=== PATIENT | male | born 1945 | race Caucasian/White ===

== ENCOUNTER → 2018-01-12 | Day surgery (SDC) | payer OTHER, MEDICARE ==
[~2018-01-12] MED LIST: ASA81 MG PO; CRESTOR10 MG PO; DEXAMETHASONE SOD PHOS INJ 4 MG/ML VIAL ONE; DIOVAN PO; EPHEDRINE SULFATE INJ 50 MG/10 ML SYR ONE; FENTANYL CITRATE/PF 100MCG/2 ML INJ ONE; GENTAMICIN 120MG/NS 100ML 100 ML ONE; IOPAMIDOL 610MG/1ML 300 MG/ML VIAL IV ONE; LEVSIN0.125 M1 GT; LIDOCAINE HCL 2% LOCAL INJ 5 ML SDV VIAL INJ ONE; LORATADINE10 M2 PO; MIDAZOLAM HCL 2 MG/2 ML VIAL ONE; ONDANSETRON HCL INJ 2 MG/ML VIAL ONE; PROPOFOL IV EMULSION 10 MG/ML 20 ML VIAL ONE; SEVOFLURANE INHAL SOLN 250 ML PEN BTL ONE; Z.0.BENICAR20 MG PO; Z.0.OMEPRAZOLE40 MG PO
--- OUTSIDE RECORDS SUMMARY | 2018-01-12 08:37 | XMS REPORT | Clinical Summary ---
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 Name Role Phone Izzy Martino MD PCP Allergies Not on File Current Medications Not on file Active Problems Not on file Encounters Date Type Specialty Care Team Description 12/07/2017 [facility] Radiology Abdneeru, Junior Aziz, BPH with urinary Encounter MD obstruction 11/25/2017 Transcribe Access Abdelsayed, Junior Aziz, BPH with urinary Orders MD obstruction (Primary Dx) 10/27/2017 Hospital Radiology Abdelsalissa, Junior Aziz, Urethral cyst; Encounter MD Hydronephrosis, unspecified hydronephrosis type 10/25/2017 Transcribe Access Abdelsayed, Junior Aziz, Urethral cyst ( Primary Orders MD Dx); Hydronephrosis, unspecified hydronephrosis type after 01/11/2017 Social History Tobacco Use Types Packs/Day Years Used Date Never Assessed Sex Assigned at Date Recorded Not on file Last Filed Vital Signs Not on file Plan of Treatment Health Maintenance Due Date Last Done Comments COLONOSCOPY 1996 SHINGRIX VACCINE (#1) 1996 ZOSTER VACCINE 2006 PNEUMOCOCCAL 2011 POLYSACCHARIDE VACCINE AGE 65 AND OVER PNEUMOCOCCAL-13 2011 INFLUENZA VACCINE 04/06/2018 Results * US Prostate (12/07/2017 2:30 PM) Specimen Performing Laboratory [facility] [address] [place] [address] Narrative PROCEDURE:US PROSTATE CLINICAL HISTORY:N40.1 Benign prostatic hyperplasia with lower urinary tract symptoms, N13.8 Other obstructive and reflux uropathy, BPH COMPARISON:None. TECHNIQUE: A transrectal examination of the prostate gland was performed in transverse and sagittal views with color-flow Doppler interrogation. The seminal vesicles were also interrogated. FINDINGS: The prostate gland measures 4.9 cm x 5.2 cm x 3.1 cm for a volume of 40.5 mL. The peripheral zone is homogeneous. No focal lesions are identified. Heterogeneity in echotexture is demonstrated of the central zone with calcification of the prostate at the junction of the central and peripheral zone. A small cystic area measuring 4.4 mm in maximal diameter is seen in the lower right central zone. No abnormality of the seminal vesicles is seen. IMPRESSION: Abnormal study. Benign prostatic hyperplasia. Prostatic calcifications. No focal lesions are identified in the peripheral zone. Tiny cyst in the central zone. No abnormality of the seminal vesicles is seen. [facility] [id number] . Procedure Note Interface, Radiology Results Incoming - 12/07/2017 6:14 PM CDT PROCEDURE: US PROSTATE CLINICAL HISTORY: N40.1 Benign prostatic hyperplasia with lower urinary tract symptoms, N13.8 Other obstructive and reflux uropathy, BPH COMPARISON: None. TECHNIQUE: A transrectal examination of the prostate gland was performed in transverse and sagittal views with color-flow Doppler interrogation. The seminal vesicles were also interrogated. FINDINGS: The prostate gland measures 4.9 cm x 5.2 cm x 3.1 cm for a volume of 40.5 mL. The peripheral zone is homogeneous. No focal lesions are identified. Heterogeneity in echotexture is demonstrated of the central zone with calcification of the prostate at the junction of the central and peripheral zone. A small cystic area measuring 4.4 mm in maximal diameter is seen in the lower right central zone. No abnormality of the seminal vesicles is seen. IMPRESSION: Abnormal study. Benign prostatic hyperplasia. Prostatic calcifications. No focal lesions are identified in the peripheral zone. Tiny cyst in the central zone. No abnormality of the seminal vesicles is seen. [facility] [id number] . * US Renal (10/27/2017 4:02 PM) Specimen Performing Laboratory [facility] [address] [place] [address] Narrative EXAMINATION:US RENAL CLINICAL HISTORY:N36.8 Other specified disorders of urethra, N13.30 Unspecified hydronephrosis, HYDRONEPHROSIS COMPARISON:April 08, 2016 renal ultrasound FINDINGS: The kidneys are normal in size. Kidneys slightly increased in echogenicity. Left kidney borderline atrophic separate previous. There is no evidence of renal mass on either side. Moderate fullness renal pelvis on the left as before. The right kidney .61 cmX5.93 cmX6.37 cm. Renal cortex 1.78 mm. 4 mm echogenic focus inferior pole right kidney. Nonshadowing renal calculus suspected The left kidney measures9.28 cmX6.59 cm X 4.46 cm. Renal cortex 1.04 cm. 4.1 cm area benign appearing cortical cyst. The urinary bladder measures 775 cc prevoid and 180 cc postvoid. IMPRESSION: Increased echogenicity kidneys similar to previous in keeping with renal dysfunction. Stable borderline atrophic left kidney. Stable moderate renal pelvic fullness on the left. Renal cortical cyst on the right benign in appearance Small 4 mm nonshadowing calculus inferior pole right kidney. Moderate post void residual urinary bladder at 180 cc. [id number] Procedure Note Hm Interface, Radiology Results Incoming - 10/27/2017 5:06 PM INVENTORY COORDINATOR EXAMINATION: US RENAL CLINICAL HISTORY: N36.8 Other specified disorders of urethra, N13.30 Unspecified hydronephrosis, HYDRONEPHROSIS COMPARISON: April 08, 2016 renal ultrasound FINDINGS: The kidneys are normal in size. Kidneys slightly increased in echogenicity. Left kidney borderline atrophic separate previous. There is no evidence of renal mass on either side. Moderate fullness renal pelvis on the left as before. The right kidney measures 11.61 cm X 5.93 cm X 6.37 cm. Renal cortex 1.78 mm. 4 mm echogenic focus inferior pole right kidney. Nonshadowing renal calculus suspected The left kidney measures 9.28 cm X 6.59 cm X 4.46 cm. Renal cortex 1.04 cm. 4.1 cm area benign appearing cortical cyst. The urinary bladder measures 775 cc prevoid and 180 cc postvoid. IMPRESSION: Increased echogenicity kidneys similar to previous in keeping with renal dysfunction. Stable borderline atrophic left kidney. Stable moderate renal pelvic fullness on the left. Renal cortical cyst on the right benign in appearance Small 4 mm nonshadowing calculus inferior pole right kidney. Moderate post void residual urinary bladder at 180 cc. [id number] after 01/11/2017 Insurance Payer Benefit Subscriber ID Type Phone Address Plan / Group AETNA AETNA xxxxxxxxxx HMO HMO,POS,EP O, [facility] MEDICARE MEDICARE xxxxxxxxxx Medicare [place], [place] PART A AND B AETNA AETNA xxxxxxxxxx HMO HMO,POS,EP O, [place] [address]
--- NOTE | 2018-01-12 09:44 | Diagnostic Imaging Report ---
PROCEDURE: Frontal and lateral views of the chest. COMPARISON: None. INDICATIONS: PRE OPERATIVE CHEST X-RAY FOR UROLOGY SURGERY FINDINGS: Lines/tubes: None. Lungs: The lungs are well inflated and clear. There is no evidence of pneumonia or pulmonary edema. Pleura: There is no pleural effusion or pneumothorax. Heart and mediastinum: The heart and the mediastinum are normal. Bones: No acute bony abnormality. Degenerative changes of the thoracic spine. IMPRESSION: No acute radiographic abnormality. Dictated by: Lester Smiley M.D. on 01/12/2018 at 9:46 Electronically approved by: Lester Smiley M.D. on 01/12/2018 at 9:46
--- NOTE | 2018-01-12 11:44 | Operative Report ---
DATE OF PROCEDURE: January 12, 2018 PREOPERATIVE DIAGNOSES 1. BPH. 2. Prostatic obstruction. 3. Left ureteropelvic junction obstruction. POSTOPERATIVE DIAGNOSES 1. BPH. 2. Prostatic obstruction. 3. Left ureteropelvic junction obstruction. 4. 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 OPERATION: Cystourethroscopy and bilateral retrograde pyelograms. ANESTHETIC: General. Mr. Rojas is a 72-year-old male who presented with a chief complaint of significant lower urinary tract obstruction. Workup showed that his PSA was normal. His residual urine was 267 mL. This patient was placed on the table in the lithotomy position and was prepped and draped in a sterile manner after satisfactory anesthesia. A #23-Vietnamese cystoscope was used, and cystourethroscopy was performed. It was noted that the urethra was normal. The prostatic urethra was about 3 cm long, bilobar and occlusive. Cystoscopy was then performed using both right-angle and the foroblique lens. The bladder mucosa was normal, with no evidence of gross tumor pathology or any palpable lesions. There was a large-bore diverticulum on the posterior wall at the level of the left ureter, which was inside the diverticulum. Right retrograde pyelogram was then performed using a #8 bulb-tip ureteral catheter inserted at the right ureteral orifice, and 5 mL of contrast material was injected. The retrograde showed hydronephrosis on the right side. Left retrograde pyelogram was performed similarly. There was hydronephrosis with moderate size left ureteropelvic junction with an extrarenal pelvis. The bladder was drained and cystoscope removed. The patient was taken to the recovery room in satisfactory condition. Plan for this patient is to be placed on Macrobid 100 mg 1 twice a day for 1 week. Ultracet tablet 1 every 6 to 8 hours p.r.n. He is to return to the office in 1 week. At that time, plans will be made for cystourethroscopy and TURP laser. Job#: [id number]
== END | disposition home or self-care (01) ==
LOC: OR 08:34
PROVIDERS: ATTEND Specialist
DX: N40.1 Benign prostatic hyperplasia with lower urinary tract symptoms (principal); N13.8 Other obstructive and reflux uropathy; N13.1 Hydronephrosis with ureteral stricture, not elsewhere classified; N32.3 Diverticulum of bladder; I10 Essential (primary) hypertension; Z88.0 Allergy status to penicillin; Z88.1 Allergy status to other antibiotic agents; Z79.82 Long term (current) use of aspirin
CPT/HCPCS: 52005; 71046; 74420; C1758; J1100; J1580; J2001; J2250; J2405; Q9967